=== PATIENT | male | born 1985 | race African-American/Black ===

== ENCOUNTER 2022-05-13 19:35 | Emergency (ER) | payer SELFPAY ==
[2022-05-13 19:43] VITALS: BP 138/74; PULSE 93; RESP 18; TEMP 36.6; O2SAT 99
--- NOTE | 2022-05-13 19:45 | DI.CT_ITS ---
Exam(s) CT RENAL COLIC WO EXAM: CT RENAL COLIC WO CLINICAL HISTORY: single L kidney, left anterior flankabdominal pain. TECHNIQUE: Imaging Protocol: Axial computed tomography images with coronal and sagittal reformatted images were created and reviewed. COMPARISON: No exams were available for comparison FINDINGS: The examination is limited due to patient motion artifact. ABDOMEN: Lung Bases: Normal where visualized. Liver: Normal density. No measurable mass. Gallbladder and biliary tract: No radiodense calculus or biliary ductal dilation. Pancreas: Normal density, no abnormal calcifications or inflammatory process. Spleen: Normal. Kidneys: The right kidney is absent. The left kidney is normal size, contour and axis.No radiodense stones or obstructive uropathy. No masses seen. Adrenal glands: No mass is seen. Lymph nodes: Within normal limits. Abdominal Aorta: Abdominal portion non-dilated. PELVIS: Bladder:Symmetric distention, no gross wall thickening. Bowel: No obstruction or bowel wall thickening. Appendix is unremarkable. Peritoneal cavity: No ascites, collection or mesenteric inflammatory response. No free air. Reproductive organs: Unremarkable as visualized. Bones: Within normal limits. Soft Tissues: There is a small fat containing umbilical hernia. IMPRESSION: 1. No acute abdominal or pelvic process. 2. No evidence of nephrolithiasis or hydronephrosis. RADIATION DOSE DELIVERED: 838.72mGy.cm Total DLP DATA REPOSITORY: All CT scans at this facility are submitted to the National Radiology Data Registry (NRDR) Dose Index Registry (DIR) with the [employer] (ACR). RADIATION OPTIMIZATION: All CT scans at this facility use at least one of these dose optimization te chniques: automated exposure control; mA and/or kV adjustment per patient size (includes targeted exa ms where dose is matched to clinical indication); or iterative reconstruction.
--- NOTE | 2022-05-13 20:01 | ED.GENADUL_ITS ---
Discharge Plan Disposition Patient Disposition: HOME Condition: Good Discharge Details Clinical Impression: Acute flank pain, Muscle spasm Primary Care Provider: None,None ED Provider: Mando Meléndez Home Meds and New Rx's Prescriptions: No Action No Known Home Meds Discharge Instructions Instructions: Muscle Spasm (ED) Additional Instructions: At this time thankfully your CAT scan shows no evidence of kidney stone, infection, hernia, or other significant abnormality. I suspect that the pain is from a spasm of the muscle in the ligament in your groin. Please take it easy, do not perform any heavy lifting over the next few days, take Tylenol and Motrin as needed for pain. Follow-up closely with your chiropractor. If you notice any worsening of your symptoms, or any new symptoms such as vomiting, diarrhea, fever, chills, shortness of breath, chest pain, numbness, weakness, or fainting , please return immediately to the emergency department for reevaluation. Please follow up with your primary care provider as soon as possible for reassessment and reevaluation. As always, it was a pleasure participating in your medical care today. Stand Alone Forms: Work Release Medical Decision Making This is a very pleasant 37-year-old -[place] male with a past medical history of a single kidney on the left, who presents today for left flank pain. 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 It comes in waves, pain at its peak is unbearable and 10 out of 10, at its trough it is around a 4 or 5 out of 10. He describes it as sharp and stabbing. He did take ibuprofen but this did not help. He denies any urinary complaints, vomiting or diarrhea. He denies ever having anything like this before. Past family history is positive for hernias, but the patient denies any hernias himself. He denies any other major abdominal surgeries. No other complaints at this time. No other modifying factors. Physical exam demonstrates a well-appearing male who has episodes of severe pain. Is located in the left lateral abdomen. No clearly palpable inguinal or spagalian and hernia. No masses. No scrotal testicular or groin tenderness. Differential is highest for kidney stone or potential small hernia that is not clearly visible on external exam. Differential also includes diverticulitis. Dehydration and muscle spasm is a potential but less likely. We will rehydrate, treat the patient's pain, get a CT scan for evaluation of these etiologies, monitor closely and reassess. 10:30 PM Patient's laboratory work-up is returned, no bandemia, no significant white count, electrolytes normal, urinalysis negative. Bilirubin normal. CT scan demonstrates no evidence of acute process. Patient again had the spasms in his left flank/inguinal canal area, bedside ultrasound was performed during the spasm and there was no evidence of hernia slipping in and out of the canal during these episodes. Spasms eventually resolved and the patient felt much better. They do feel there is likely an inguinal ligament tear or strain. Will recommend Flexeril, Lidoderm patch, and NSAIDs. Patient demonstrates no signs of an acute surgical abdomen, he feels much better. Patient stable for discharge. Symptoms inconsistent with kidney stone or appendicitis or diverticulitis. No clinical evidence of testicular torsion. I have extensively reviewed the treatment plan and discharge instructions with the patient. I have addressed all patient concerns at this time. The patient was made aware of what symptoms to monitor for that would warrant a return to the emergency department. Discussed the plan with the patient, they demonstrate verbal understanding and agreement with our assessment and plan at this time. The documentation in this chart was dictated using [employer] dictation software. Please excuse any dictation errors. FINDINGS: Liver: No hepatic masses on noncontrast imaging. Gallbladder and bile ducts: No calcified stones. No ductal dilation. Pancreas: No gross pathology in the pancreas on noncontrast imaging. Spleen: No splenomegaly or focal lesions. Adrenal glands: No mass. Kidneys and ureters: Solitary left kidney with no stones or hydronephrosis. Absent right kidney. 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 Stomach and bowel: No gross pathology in the small bowel without IV contrast. No colitis or diverticular disease. Appendix: No evidence of appendicitis. Intraperitoneal space: No free air. No significant fluid collection. Vasculature: No abdominal aortic aneurysm. Lymph nodes: No significantly enlarged lymph nodes. Urinary bladder: Unremarkable as visualized. Reproductive: Unremarkable as visualized. Bones/joints: No acute fracture. Soft tissues: Tiny fat-containing umbilical hernia. IMPRESSION: Solitary left kidney with no stones or hydronephrosis. Thank you for allowing us to participate in the care of your patient. Dictated and Authenticated by: Brittny Fung MD 05/13/2022 9:08 PM Eastern Time ([place] & [place]) HPI General Date/Time Provider Initiated Documentation: 05/13/22 19:51 . HPI Narrative: This is a very pleasant 37-year-old -[place]one[place] male with a past medical history of a single kidney on the left, who presents today for left flank pain. 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 It comes in waves, pain at its peak is unbearable and 10 out of 10, at its trough it is around a 4 or 5 out of 10. He describes it as sharp and stabbing. He did take ibuprofen but this did not help. He denies any urinary complaints, vomiting or diarrhea. He denies ever having anything like this before. Past family history is positive for hernias, but the patient denies any hernias himself. He denies any other major abdominal surgeries. No other complaints at this time. No other modifying factors. Related Data Home Medications Medication Instructions Recorded Confirmed Unknown [No Known Home Meds] 05/13/22 05/13/22 Allergies Allergy/AdvReac Type Severity Reaction Status Date / Time Penicillins AdvReac Unverified 05/13/22 19:46 General Stated Complaint: Abd Prob HIRA: 3 Review of Systems All systems reviewed & are unremarkable except as noted in HPI and below PFSH All Active Problems (Updated 05/13/22 @ 21:34 by Mando Meléndez DO) Acute flank pain (Acute) Muscle spasm (Acute) Social History Smoking/Tobacco Use Status: Never Smoking risk assessment performed?: Yes Do you feel safe at home: Yes Do you feel safe in your relationship?: Yes Exam Narrative Exam Narrative: 1.Const: Well-nourished, Well-developed, appearing stated age 2.Eyes: PERRL, no conjunctival injection, and symmetrical lids. 3.ENT: Atraumatic external nose and ears. Moist MM. Neck: Symmetric, trachea midline, No thyromegaly. 4.CVS: +S1/S2, No murmurs or gallops. Peripheral pulses 2+ and equal in all extremities. Brisk capillary refill in all extremities. 5.RESP: Unlabored respiratory effort. Clear to auscultation bilaterally. No wheezes rales or rhonchi 6.GI: Soft, N nondistended, no guarding. No rebound. Patient seems to have episodes of severe stabbing pain, when he does his entire abdomen tenses up. It is located on the left-hand side with focus of pain is. No palpable inguinal hernia. No clearly palpable spigelian hernia. Genital exam demonstrates no genital tenderness, no testicular tenderness. No palpable mass. Pain appears to have a focus about 1 to 2 cm over the ASIS 7.MSK: Normocephalic/Atraumatic, Extremities w/o deformity or ttp No cyanosis or clubbing, Normal movement of all extremities 8.Skin: Warm, Dry. No rashes or lesions. 9.Neuro: sql developer II-XII grossly intact. Sensation grossly intact, no focal neurologic deficits. 10.Psych: (AAO) x3. Appropriate mood and affect Course Vital Signs Vital signs: Vital Signs Temperature 36.6 C 05/13/22 19:43 Pulse 93 H 05/13/22 19:43 Respiratory Rate 18 05/13/22 19:43 Blood Pressure 138/74 05/13/22 19:43 Pulse Oximetry 99 05/13/22 19:43 Temperature 36.6 C 05/13/22 19:43 Temperature Source Temporal Artery Scan 05/13/22 19:43 Pulse 93 H 05/13/22 19:43 Respiratory Rate 18 05/13/22 19:43 Blood Pressure 138/74 05/13/22 19:43 Blood Pressure Position Sitting 05/13/22 19:43 Pulse Oximetry 99 05/13/22 19:43 Oxygen Delivery Method Room Air 05/13/22 19:43 Oxygen Flow Rate 0 05/13/22 19:43 Pain Level 10 05/13/22 19:43
[2022-05-13 20:18] LABS: Abs Immature Grans 0.04 10^3/uL (0.0-0.06); Absolute Basophil Count 0.02 10^3/uL (0.0-0.2); Absolute Eosinophil Count 0.03 10^3/uL (0.0-0.7); Absolute Lymphocyte Count 1.28 10^3/uL (1.2-3.4); Absolute Monocyte Count 0.55 10^3/uL (0.1-0.8); Absolute Neutrophil Count 9.73 10^3/uL (1.2-6.7); Basophils % 0.2; Eosinophils % 0.3; HCT 42.4 % (40.0-50.0); HGB 14.6 g/dL (13.5-17.5); Immature Grans % 0.3; MCH 31.4 pg (27.0-33.0); MCHC 34.4 % (32.0-36.0); MCV 91 fL (80-95); Monocytes % 4.7; Neutrophils % 83.5; Platelet Count 296 10^3/uL (130-400); RBC 4.65 10^6/uL (4.36-5.78); RDW 11.7 % (11.8-14.1); RDW-SD 39.3 fL; WBC 11.65 10^3/uL (4.4-10.8)
[2022-05-13] MEDS: MORPHine 4 MG/ML SYR IVP (20:25)
[2022-05-13] MEDS: Normal Saline 1,000 ML 1000 ML IV (20:26)
[2022-05-13 20:36] LABS: ALT 65 U/L (16-63); AST 36 U/L (15-37); Albumin 4.5 g/dL (3.4-5.0); Alkaline Phosphatase 74 U/L (46-116); Anion Gap 7.9 mmol/L (3-11); BUN 13 mg/dL (7-18); Bilirubin, Total 0.9 mg/dL (0.2-1.0); CO2 29.1 mmol/L (21.0-32.0); CREATININE 1.1 mg/dL (0.70-1.30); Calcium 9.3 mg/dL (8.5-10.1); Chloride 102 mmol/L (98-107); Estimated GFR 89.22 (mL/min/1.73m2); Glucose 100 mg/dL (74-106); Potassium 3.9 mmol/L (3.5-5.1); Sodium 139 mmol/L (136-145); Total Protein 8.7 g/dL (6.4-8.2)
[2022-05-13] MEDS: diazePAM 10 MG/2 ML SYR 5 MG IVP (21:02)
--- NOTE | 2022-05-13 21:09 | DI.VRAD_ITS ---
PROCEDURE INFORMATION: Exam: CT Abdomen And Pelvis Without Contrast Exam date and time: 05/13/2022 20:40 Age: 37 years old Clinical indication: Abdominal pain; Flank; Left; Additional info: Single left kidney, left anterior flank pain TECHNIQUE: Imaging protocol: Computed tomography of the abdomen and pelvis without contrast. Radiation optimization: All CT scans at this facility use at least one of these dose optimization techniques: automated exposure control; mA and/or kV adjustment per patient size (includes targeted exams where dose is matched to clinical indication); or iterative reconstruction. COMPARISON: No relevant prior studies available. FINDINGS: Liver: No hepatic masses on noncontrast imaging. Gallbladder and bile ducts: No calcified stones. No ductal dilation. Pancreas: No gross pathology in the pancreas on noncontrast imaging. Spleen: No splenomegaly or focal lesions. Adrenal glands: No mass. Kidneys and ureters: Solitary left kidney with no stones or hydronephrosis. Absent right kidney. 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 Stomach and bowel: No gross pathology in the small bowel without IV contrast. No colitis or diverticular disease. Appendix: No evidence of appendicitis. Intraperitoneal space: No free air. No significant fluid collection. Vasculature: No abdominal aortic aneurysm. Lymph nodes: No significantly enlarged lymph nodes. Urinary bladder: Unremarkable as visualized. Reproductive: Unremarkable as visualized. Bones/joints: No acute fracture. Soft tissues: Tiny fat-containing umbilical hernia. IMPRESSION: Solitary left kidney with no stones or hydronephrosis. Dictated and Authenticated by: Brittny Fung MD. Ordering:RAYMOND Gilmore MD
[2022-05-13] MEDS: Lidocaine 5% Patch 1 PATCH TP (22:05)
[2022-05-13] MEDS: Ketorolac 15 MG/ML VIAL IVP (22:05)
[2022-05-13 22:13] LABS: Bilirubin Negative (Negative); Blood Negative (Negative); Clarity Clear (Clear); Glucose Negative (Negative); Ketones Negative (Negative); Leukocyte Esterase Negative (Negative); Nitrite Negative (Negative); Specific Gravity 1.025 (1.005-1.025); Urobilinogen 0.2 EU/dL (Up TO 0.2); pH 6.5 (5-8)
[2022-05-13] MEDS: Cyclobenzaprine 10 MG TAB, 3 TABS/BTL PO (22:13)
[2022-05-13 22:52] VITALS: BP 130/79; PULSE 66; RESP 16; TEMP 36.6; O2SAT 98
== END 2022-05-13 22:35 | disposition home or self-care (01) ==
PROVIDERS: Emergency Provider Student in an Organized Health Care Education/Training Program
DX: G89.11 Acute pain due to trauma (principal); R10.9 Unspecified abdominal pain; M62.838 Other muscle spasm; Y99.0 Civilian activity done for income or pay; X50.0XXA Overexertion from strenuous movement or load, initial encounter
CPT/HCPCS: 36415; 80053; 96361; 96374; 96375; 99284; 74176; 81003; 85025; J1885; J2270; J3360